=== PATIENT | male | born 1995 | race Two or more races ===

== ENCOUNTER 2018-07-25 13:35 | Emergency (ER) | payer MEDICAID ==
[~2018-07-25] VITALS: Ht 188 cm; Wt 104.3 kg
[2018-07-25 13:40] VITALS: BP 130/94
[2018-07-25] MEDS ORDERED: IBUPROFEN600 MG ORAL (14:09)
[2018-07-25] MEDS ORDERED: ROBAXIN-750750 MG PO (14:09)
[2018-07-25 14:10] VITALS: BP 116/68
--- NOTE | 2018-07-25 21:57 | Emergency Room Report ---
History of Present Illness General Chief Complaint: Back Pain-No Injury Source: Patient Present Illness HPI The patient is a 22-year-old male presenting for back pain. He states that this occurred yesterday after picking up heavy box. He felt immediate pain of the lower back. This is now described as a 10 out of 10 sharp sensation. Does not radiate. Worse with movement. He has not tried any pain medications. He denies other symptoms including numbness or tingling, bowel or bladder incontinence Allergies: Coded Allergies: No Known Allergies (Unverified , 07/25/18) Patient History Past Medical History: see triage record Pertinent Family History: none Reviewed Nursing Documentation: PMH: Agreed; PSxH: Agreed Nursing Documentation-PMH Past Medical History: No Stated History Review of Systems All Other Systems: negative except mentioned in HPI Physical Exam Vital Signs Date Time Temp Pulse Resp B/P (MAP) Pulse Ox O2 Delivery O2 Flow Rate FiO2 07/25/18 13:38 97.9 96 18 133/95 97 Room Air Sp02 EP Interpretation: reviewed, normal General Appearance: no apparent distress, alert, GCS 15, non-toxic Head: normocephalic, atraumatic Respiratory: chest non-tender, lungs clear, normal breath sounds, speaking full sentences Gastrointestinal: normal bowel sounds, non tender, soft, non-distended, no guarding, no rebound Genitourinary: normal inspection, no CVA tenderness Musculoskeletal: gait/station normal, normal range of motion, tender - lumbar paraspinal muscles Neurologic: alert, oriented x3, responsive, motor strength/tone normal, sensory intact, speech normal Psychiatric: judgement/insight normal, memory normal, mood/affect normal, no suicidal/homicidal ideation Skin: normal color, no rash, warm/dry, well hydrated Medical Decision Making PA Attestation Dr. Saucedo is my supervising physician. Patient management was discussed with my supervising physician Diagnostic Impression: Primary Impression: Lumbar strain Qualified Codes: S39.012A - Strain of muscle, fascia and tendon of lower back , initial encounter ER Course The patient is a 22-year-old male presenting for back pain. Ddx considered include but not limited to lumbar strain, disc herniation, fracture, among others. PE: vitals stable. NAD There is times to palpation over bilateral lumbar paraspinal muscles. No midline tenderness or step-offs. Normal active range of motion Normal gait. sensation is intact The patient is discharged home with prescription for Motrin and Robaxin. He will follow-up with his primary doctor for further evaluation and treatment. ER precautions are given Last Vital Signs Date Time Temp Pulse Resp B/P (MAP) Pulse Ox O2 Delivery O2 Flow Rate FiO2 07/25/18 14:10 98.2 72 16 116/68 100 Room Air Status: improved Disposition: HOME, SELF-CARE Condition: Improved Scripts Methocarbamol* (ROBAXIN-750*) 750 Mg Tablet 750 MG PO TID, #21 TAB 0 Refills Prov: BRITTANEY JONES.A. 07/25/18 Ibuprofen* (MOTRIN*) 600 Mg Tablet 600 MG ORAL Q8H PRN for For Pain, #30 TAB 0 Refills Prov: BRITTANEY JONES.A. 07/25/18 Referrals: NON PHYSICIAN (PCP) Patient Instructions: Back Pain, Adult Additional Instructions: I discussed my findings with the patient. All questions and concerns have been answered. Treatment and medication compliance have been addressed. I advised the patient that they need to follow up with primary doctor in 3-5 days. Return to ER if pain remains or worsens, numbness or tingling occurs, new rash is noticed, fever is noticed, or if needed for any reason. Patient verbalized understanding of discharge instructions. Please make an appointment with your primary doctor for further treatment and evaluation BRITTANEY JONES Jul 25, 2018 21:57
== END 2018-07-25 14:10 | disposition home or self-care (01) ==
LOC: EMR 13:49
DX: S39.012A Strain of muscle, fascia and tendon of lower back, initial encounter (principal); X50.0XXA Overexertion from strenuous movement or load, initial encounter; Y92.9 Unspecified place or not applicable
CPT/HCPCS: 99282

== ENCOUNTER 2018-10-13 09:56 | Emergency (ER) | payer MEDICAID ==
[~2018-10-13] VITALS: Ht 182.9 cm; Wt 104.3 kg
[~2018-10-13 09:56] MED LIST: IBUPROFEN600 MG ORAL; ROBAXIN-750750 MG PO
--- NOTE | 2018-10-13 10:05 | NUR ---
ED Nurse Note: AMBULATED IN TO ER DUE TO COUGH AND SORETHROAT X 2 WEEKS WITH FEVER. ERMD MADE AWARE OF THE ORAL TEMP, 103F. NO S/S OF DISTRESS.
[2018-10-13] MEDS ORDERED: AMOXICILLIN500 MG ORAL (10:18)
[2018-10-13] MEDS ORDERED: PROMETHAZINE-C118 M1 ORAL (10:18)
[2018-10-13] MEDS ORDERED: IBUPROFEN600 MG ORAL (10:18)
--- NOTE | 2018-10-13 10:26 | NUR ---
Nell schmidt in EDM - 10/13/18 at 1028 by DENISE ED Nurse Note: PT BACK FROM CT VIA [facility] ACCOMPANIED BY [employer]. MICHAEL MCDANIELS, UNABLE TO COMPLETE CT DUE TO PT NONCOMPLIANCE.
[2018-10-13 10:30] VITALS: BP 124/82
--- NOTE | 2018-10-13 10:31 | NUR ---
ED Nurse Note: Pt cleared by health care Provider for discharge. DC instructions/prescription was given and explained to pt and verbalized understanding of teachings. All medical deviecs such as ID band removed. Pt is AAO x4, ambulatory and left with all personal belongings.
--- NOTE | 2018-10-13 10:50 | Emergency Room Report ---
History of Present Illness General Chief Complaint: Upper Respiratory Illness Source: Patient Present Illness HPI 23-year-old male presents ED for evaluation. Patient complaining of cough and sore throat. States it started about 2 months ago and is not improving with [id number] medication. Pain is dull, 8 out of 10, nonradiating. Has cough productive with yellowish phlegm. Febrile in triage. Denies sick contacts or recent travel. Denies smoking. No other aggravating relieving factors. Denies any other associated symptoms Allergies: Coded Allergies: No Known Allergies (Unverified , 07/25/18) Patient History Past Medical History: none Past Surgical History: none Pertinent Family History: none Social History: Denies: smoking, alcohol use, drug use Immunizations: UTD Reviewed Nursing Documentation: PMH: Agreed; PSxH: Agreed Nursing Documentation-PMH Past Medical History: No Stated History Review of Systems All Other Systems: negative except mentioned in HPI Physical Exam Vital Signs Date Time Temp Pulse Resp B/P (MAP) Pulse Ox O2 Delivery O2 Flow Rate FiO2 10/13/18 09:58 103.1 115 24 117/74 97 Room Air Sp02 EP Interpretation: reviewed, normal General Appearance: no apparent distress, alert, GCS 15, non-toxic Head: normocephalic Eyes: bilateral eye normal inspection, bilateral eye PERRL ENT: hearing grossly normal, no angioedema, normal voice, TMs + canals normal, uvula midline, tonsillar swelling, pharyngeal erythema, tonsillar exudate Neck: full range of motion, supple, supple/symm/no masses Respiratory: chest non-tender, lungs clear, normal breath sounds, speaking full sentences Cardiovascular #1: normal inspection Gastrointestinal: normal inspection Rectal: deferred Genitourinary: no CVA tenderness Musculoskeletal: normal inspection Neurologic: alert, oriented x3, responsive, motor strength/tone normal, sensory intact, speech normal Psychiatric: normal inspection Skin: normal inspection Lymphatic: normal inspection Medical Decision Making Diagnostic Impression: Primary Impression: Tonsillitis ER Course Hospital Course 23-year-old male presents to ED complaining of sore throat + fever Differential diagnoses include: URI, pharyngitis, otitis media Clinical course Patient placed on stretcher. After initial history, physical exam reveals a male in no acute distress. Bilateral TM unremarkable. There is pharyngeal erythema w/ tonsillar exudates and swelling. Noted lymphadenopathy. Consideration for viral as there is a cough but patient's symptoms have persisted for 2 months. More like tonsillitis. Discussed findings with patient. We'll discharge with antibiotics. Given Motrin here for fever. Given one dose of amoxicillin. Safe for discharge or close outpatient follow-up. States he has a PMD Diagnosis - tonsillitis Stable and discharged home with prescriptions for Motrin, amoxicillin. Instructed to followup with PMD. return to ED if symptoms recur or worsen Last Vital Signs Date Time Temp Pulse Resp B/P (MAP) Pulse Ox O2 Delivery O2 Flow Rate FiO2 10/13/18 10:30 101.6 110 20 124/82 96 Room Air Status: improved Disposition: HOME, SELF-CARE Condition: Stable Scripts Codeine/Promethazine Hcl* (PROMETHAZINE-CODEINE SYRUP*) 118 Ml Syrup 5 ML ORAL Q6H PRN for For Cough, #118 ML 0 Refills Prov: Sanket Menard MD 10/13/18 Amoxicillin* (AMOXIL*) 500 Mg Capsule 500 MG ORAL THREE TIMES A DAY, #21 CAP Prov: Sanket Menard MD 10/13/18 Ibuprofen* (MOTRIN*) 600 Mg Tablet 600 MG ORAL Q8H PRN for For Pain, #30 TAB 0 Refills Prov: Sanket Menard MD 10/13/18 Referrals: [facility],REFERRING (PCP) Patient Instructions: Tonsillitis, [id number] Sanket Menard MD Oct 13, 2018 10:50
== END 2018-10-13 10:32 | disposition home or self-care (01) ==
LOC: EMR 10:20
DX: J03.90 Acute tonsillitis, unspecified (principal); R50.9 Fever, unspecified
CPT/HCPCS: 99282

== ENCOUNTER 2018-12-06 03:17 | Emergency (ER) | payer MEDICAID ==
[~2018-12-06] VITALS: Ht 182.9 cm; Wt 99.8 kg
[~2018-12-06 03:17] MED LIST changes: +AMOXICILLIN500 MG ORAL; +PROMETHAZINE-C118 M1 ORAL
[2018-12-06 03:30] VITALS: BP 129/89
--- NOTE | 2018-12-06 03:30 | NUR ---
ED Nurse Note: Pt arrived ED from home, c/o right arm nubness for few hours today, denied any injuries. Pt is A/O X4, VSS. waitng for orders.
--- NOTE | 2018-12-06 03:37 | Emergency Room Report ---
History of Present Illness General Chief Complaint: Pain Source: Patient Present Illness HPI This is a 23-year-old male with no past medical history. He presents with chief complaint of right arm numbness. This occurred just after smoking marijuana. No trauma. No fever chills. Denies any pain. Nothing made it better. Nothing made it worse. Allergies: Coded Allergies: No Known Allergies (Unverified , 07/25/18) Patient History Past Medical History: see triage record, old chart reviewed Past Surgical History: none Pertinent Family History: none Social History: Denies: smoking Immunizations: other Reviewed Nursing Documentation: PMH: Agreed; PSxH: Agreed Nursing Documentation-PMH Past Medical History: No Stated History Review of Systems Eye: Denies: eye pain, blurred vision ENT: Denies: ear pain, nose congestion, throat swelling Respiratory: Denies: cough, shortness of breath Cardiovascular: Denies: chest pain, palpitations Gastrointestinal: Denies: abdominal pain, diarrhea, nausea, vomiting Musculoskeletal: Denies: back pain, joint pain Skin: Denies: rash Neurological: Denies: headache, numbness Endocrine: Denies: increased thirst, increased urine Hematologic/Lymphatic: Denies: easy bruising All Other Systems: negative except mentioned in HPI Physical Exam Vital Signs Date Time Temp Pulse Resp B/P (MAP) Pulse Ox O2 Delivery O2 Flow Rate FiO2 12/06/18 03:21 98.2 112 20 129/89 (102) 96 Room Air Vitals unremarkable Sp02 EP Interpretation: reviewed, normal General Appearance: well appearing, no apparent distress, alert Head: normocephalic, atraumatic Eyes: bilateral eye PERRL, bilateral eye EOMI ENT: hearing grossly normal, normal pharynx Neck: full range of motion, supple, no meningismus Respiratory: chest non-tender, lungs clear, normal breath sounds Cardiovascular #1: regular rate, rhythm, no murmur Gastrointestinal: normal bowel sounds, non tender, no mass, no organomegaly, no bruit, non-distended Musculoskeletal: back normal, gait/station normal, normal range of motion Psychiatric: mood/affect normal Skin: warm/dry Medical Decision Making Diagnostic Impression: Primary Impression: Paresthesia ER Course Presents with right forearm numbness after smoking marijuana. I see no evidence of DVT. No trauma. He is playing on his phone when I came into the room. No need for x-rays. Will discharge home. Last Vital Signs Date Time Temp Pulse Resp B/P (MAP) Pulse Ox O2 Delivery O2 Flow Rate FiO2 12/06/18 03:21 98.2 112 20 129/89 (102) 96 Room Air Status: unchanged Disposition: HOME, SELF-CARE Condition: Stable Referrals: NOT CHOSEN [facility],REFERRING (PCP) Additional Instructions: Follow-up with your doctor in 7 days. Return if worse. Francisco Mullen MD Dec 06, 2018 03:37
[2018-12-06 03:41] VITALS: BP 129/89
--- NOTE | 2018-12-06 03:41 | NUR ---
ER DISCHARGE NOTE: Patient is cleared to be discharged per Dr. Mullen. Pt is aox4 on room air with stable vital signs. Pt was given dc and prescription instructions. Pt was able to verbalize understanding. Pt's id band removed. Pt is able to ambulate with steady gait and took all belongings.
== END 2018-12-06 03:41 | disposition home or self-care (01) ==
LOC: EMR 03:33
DX: R20.2 Paresthesia of skin (principal); F12.90 Cannabis use, unspecified, uncomplicated
CPT/HCPCS: 99282